=== PATIENT | male | born 1940 | race Caucasian/White ===

== ENCOUNTER → 2016-11-18 | Outpatient (CLI) | payer MEDICARE | LOC: GMAB 11:38 | PROVIDERS: ATTEND Family Medicine | DX: N18.3 Chronic kidney disease, stage 3 (moderate) (principal); N25.81 Secondary hyperparathyroidism of renal origin; E55.9 Vitamin D deficiency, unspecified ==

== ENCOUNTER → 2017-01-29 | Outpatient (CLI) | payer MEDICARE | END | disposition home or self-care (01) | LOC: GMAB 10:32 | PROVIDERS: ATTEND Family Medicine | DX: Z12.5 Encounter for screening for malignant neoplasm of prostate (principal); I10 Essential (primary) hypertension; E29.1 Testicular hypofunction | CPT/HCPCS: 84443; G0103 ==

== ENCOUNTER → 2018-01-25 | Outpatient (CLI) | payer MEDICARE | LOC: GMAB 14:33 | PROVIDERS: ATTEND Family Medicine | DX: I10 Essential (primary) hypertension (principal) ==

== ENCOUNTER → 2018-03-03 | Outpatient (CLI) | payer MEDICARE | LOC: GMAB 11:57 | PROVIDERS: ATTEND Family Medicine | DX: E29.1 Testicular hypofunction (principal); I10 Essential (primary) hypertension; Z12.5 Encounter for screening for malignant neoplasm of prostate | CPT/HCPCS: 84403; 84443; G0103 ==

== ENCOUNTER → 2018-07-07 | Outpatient (CLI) | payer MEDICARE | LOC: GMAE 15:01 | PROVIDERS: ATTEND Family Medicine | DX: R97.20 Elevated prostate specific antigen [PSA] (principal) ==

== ENCOUNTER → 2018-12-07 | Outpatient (CLI) | payer MEDICARE | LOC: GMAE 09:40 | PROVIDERS: ATTEND Family Medicine | DX: N18.3 Chronic kidney disease, stage 3 (moderate) (principal); D63.1 Anemia in chronic kidney disease; E55.9 Vitamin D deficiency, unspecified ==

== ENCOUNTER → 2019-11-03 | Outpatient (CLI) | payer MEDICARE | LOC: GMAE 10:31 | PROVIDERS: ATTEND Family Medicine | DX: R97.20 Elevated prostate specific antigen [PSA] (principal) ==

== ENCOUNTER → 2020-05-15 | Outpatient (CLI) | payer MEDICARE | LOC: GMAE 10:48 | PROVIDERS: ATTEND Family Medicine | DX: R97.20 Elevated prostate specific antigen [PSA] (principal); I10 Essential (primary) hypertension; E78.2 Mixed hyperlipidemia ==

== ENCOUNTER → 2020-07-25 | Outpatient (CLI) | payer MEDICARE | LOC: GMAE 09:58 | PROVIDERS: ATTEND Family Medicine | DX: N18.3 Chronic kidney disease, stage 3 (moderate) (principal); E87.8 Other disorders of electrolyte and fluid balance, not elsewhere classified; I10 Essential (primary) hypertension; N39.0 Urinary tract infection, site not specified; E55.9 Vitamin D deficiency, unspecified ==